=== PATIENT | male | born 1945 | race Asian ===

== ENCOUNTER 2020-05-13 13:15 | Outpatient (REF) | payer MEDICARE, OTHER, SELFPAY ==
[2020-05-13 13:43] LABS: MANUAL DIFF FLAG NO
[2020-05-13 13:48] LABS: Basophils Absolute Auto 0.1 X10*3/uL (0.0-0.2); Basophils Percent Auto 0.8 % (0-2); Eosinophils Absolute Auto 0.1 X10*3/uL (0.0-0.4); Eosinophils Percent Auto 1.5 % (0-4); Hematocrit 45.6 % (42-52); Imm Gran Abs Auto 0.01 X10*3/uL (0.00-0.03); Imm Gran Pct Auto 0.2 % (0.0-0.4); Lymphocytes Absolute Auto 2.7 X10*3/uL (1.2-4.9); Lymphocytes Percent Auto 43.9 % (20-40); Mean Corpuscular HGB Conc 32.9 g/dl (31.0-36.0); Mean Corpuscular Hemoglobin 29.7 pg (27.0-33.0); Mean Corpuscular Volume 90.3 fL (80-98); Mean Platelet Volume 10.1 fL (9.4-12.4); Monocytes Absolute Auto 0.5 X10*3/uL (0.1-1.2); Monocytes Percent Auto 7.6 % (2-11); Neutrophils Absolute Auto 2.8 X10*3/uL (2.0-8.3); Platelet Count 163 X10*3/uL (160-400); Red Blood Count 5.05 X10*6/uL (4.60-5.80); Red Cell Distribution Width 12.5 % (11.0-16.0); White Blood Count 6.1 X10*3/uL (4.8-10.8)
[2020-05-13 14:11] LABS: Estimated Average Glucose 163 mg/dL; Hemoglobin A1c % 7.3 %
[2020-05-13 14:12] LABS: Alanine Aminotransferase 31 U/L (0-40); Albumin Level 4.7 g/dL (3.5-5.0); Alkaline Phosphatase 62 U/L (39-117); Anion Gap 12 (12-20); Aspartate Amino Transferase 23 U/L (5-37); Bilirubin Total 0.5 mg/dL (0.0-1.0); Blood Urea Nitrogen 20 mg/dL (9-16); Calcium 9.5 mg/dL (8.4-10.2); Carbon Dioxide 29 mmol/L (22-29); Chloride 101 mmol/L (96-108); Cholesterol 155 mg/dL; Estimated Glomerular Filt Rate 46; Glucose Random 146 mg/dL (60-115); HDL Cholesterol 36 mg/dL; LDL Cholesterol Calculated 63 mg/dl; Potassium 4.6 mmol/l (3.3-5.1); Sodium 137 mmol/L (135-145); Total Protein 7.7 g/dL (6.5-8.0); Triglycerides 280 mg/dL; Uric Acid 4.7 mg/dL (3.4-7.0)
[2020-05-13 14:34] LABS: T4 Thyroxine 8.5 ug/dL (4.5-12.0); Thyroid Stimulating Hormone 0.87 uIU/mL (0.32-4.0)
== END 2020-05-13 13:16 | disposition home or self-care (01) ==
LOC: HO.LAB 13:15
PROVIDERS: Referring Provider Internal Medicine
DX: E11.9 Type 2 diabetes mellitus without complications (principal); E03.9 Hypothyroidism, unspecified; E78.5 Hyperlipidemia, unspecified
CPT/HCPCS: 36415; 80053; 80061; 83036; 84436; 84443; 84550; 85025

== ENCOUNTER 2020-06-30 09:22 | Outpatient (REF) | payer SELFPAY ==
--- NOTE | 2020-06-30 09:54 | MHC.AU.P13 ---
Hearing Instrument Problem Date of Visit: 06/30/20 Right Ear: Warehouse Receiver: Phonak Model: AVOS SystemsEO [id number] Serial Number: [id number] Repair Warranty: 10/03/2020 Loss and Damage Warranty: 10/03/2020 Battery Size: 312 Color: [employer] Machine Operator: 2xS Type of Dome: MEDIUM OPEN Type of Wax Guard: CERUSTOP Follow-Up Summary: Right aid dropped off - not working. Cleaned and replaced 2xS inspector handbag frames and medium open dome - now amplifying clearly. Recommendations: Recommendations: Hearing instrument follow-up or maintenance as needed. Signature: Provider: CHALO Mooney
== END 2020-06-30 09:23 | disposition home or self-care (01) ==
LOC: HO.HAP 09:22
PROVIDERS: Visit Provider Internal Medicine
DX: Z13.89 Encounter for screening for other disorder (principal)

== ENCOUNTER → 2020-08-02 12:56 | Outpatient (BNVA) | payer MEDICARE, OTHER, SELFPAY | PROVIDERS: PCP Internal Medicine; Visit Provider Internal Medicine Cardiovascular Disease | DX: Z13.89 Encounter for screening for other disorder (principal) | CPT/HCPCS: 99202 ==

== ENCOUNTER → 2020-08-18 08:23 | Outpatient (REF) | payer MEDICARE, OTHER, SELFPAY ==
--- NOTE | 2020-08-18 08:28 | CA_ITS ---
Transthoracic Echocardiogram Patient (Last, First, Middle): Wilder Austinrainaro Herlinda Dolan Gender: Male Date of : 1945 Age: 75 Procedure Date: 08/18/2020 Procedure Type: Transthoracic Echocardiogram Location: OP Height: 170.18 cm Weight: 71.67 kg BSA: 1.83 m2 Heart Rate: bpm BP: 134 / 70 mmHg Behavioral Specialist: [facility] MD: Bret Faust MD Symptoms: I35.0 - Nonrheumatic aortic (valve) stenosis Study Quality: Good ECG Rhythm: Sinus Conclusions: - The left ventricular systolic function is normal. The visually estimated ejection fraction is between 60-65%. - There is mild calcification of the aortic valve. There is no aortic valve stenosis. Findings Left Ventricle Normal left ventricular cavity size. There is mildly increased left ventricular wall thickness. The left ventricular systolic function is normal. The visually estimated ejection fraction is between 60-65%. There is no evidence of regional wall motion abnormalities. Diastolic function is normal for age. Right Ventricle Normal right ventricular cavity size and systolic function. Atria The left atrium is normal in size. The right atrium is normal in size. Aortic Valve There is a normal trileaflet aortic valve. There is mild calcification of the aortic valve. There is no aortic valve stenosis. The peak aortic velocity is 2.02 m/s with a calculated peak gradient of 16 mmHg. The mean gradient is 9 mmHg. The aortic valve area is 2.37 cm2. There is trace (trivial) aortic valve regurgitation. Mitral Valve The mitral valve appears normal. There is trace mitral valve regurgitation. There is no mitral valve stenosis. Pulmonic Valve The pulmonic valve was not well visualized. Tricuspid Valve Normal tricuspid valve structure. There is trace tricuspid valve regurgitation. The pulmonary artery systolic pressure is normal. Great Vessels The aortic annulus, sinuses of valsalva, asc aorta, and aortic arch are normal in size. Venous The inferior vena cava is normal in size and collapses greater than 50% with inspiration. Pericardium/Pleural There is no evidence of pericardial effusion. Prior Study Comparison No prior study available for comparison. Measurements 2D Linear Measurements RVIDd: 3.07 RVIDd Index: 1.68 IVSd: 1.07 0.6-0.9/0.6-1.0 cm LVIDd: 4.80 3.9-5.3/4.2-5.9 cm LVIDd Index: 2.62 2.4-3.2/2.2-3.1 cm/m2 LVIDs: 2.77 2.0-3.6 cm LVPWd: 1.09 0.7-1.1 cm Ao Root: 3.40 2.1-3.5 cm LA Diam: 3.90 2.7-3.8/3.0-4.0 cm LAIDs Index: 2.13 1.5-2.3 cm/m2 LV Mass: 235.62 67-162/88-224 g LV Mass Index: 128.76 43-95/49-115 g/m2 LVOT Diam: 2.20 3.0+(-)1.3 cm 2D Systolic Function EF 4C: 56.20 >55% EF 2C: 67.30 >55% EF BiP: 64.40 >55% Mitral Valve MV Pk E: 0.84 MV PK A: 1.15 MV Decel Time: 185.00 E/A: 0.70 E'Lateral: 11.50 E'Medial: 5.11 E/E' Med: 16.40 E/E' Lat: 7.30 Aortic Valve AoV Pk Xavi: 2.02 AoV Mn Xavi: 1.36 AoV VTI: 0.38 AoV Pk Grad: 16.00 Aov Mn Grad: 9.00 LISANDRO Cont.VTI: 2.37 LVOT LVOT Pk Xavi: 1.40 LVOT Mn Xavi: 0.88 LVOT VTI: 0.24 LVOT Pk Grad: 8.00 LVOT Mn Grad: 4.00 LVOT Diam: 2.20 LVOT Area: 3.80 Diastolic Function MV Pk E: 0.84 MV Pk A: 1.15 E/A: 0.70 E'Medial: 5.11 E/E' Med: 16.40 E' Laterial: 11.50 E/E' Lat: 7.30 Tricuspid Valve TR Pk Xavi: 2.46 TR Pk Grad: 24.00 RA Press: 3.00 RVSP: 27.00 Great Vessels Aorta Ao Root-2D: 3.40 2.0-3.7 cm Ao Asc: 3.70 2.1-3.4 cm Ao Arch: 2.70 Updated in Other Vendor System with Status of Final Ez Gamez MD electronically signed on 08/19/2020 4:05:50 PM with status of Final
== END ==
LOC: HO.CARD 08:23
PROVIDERS: PCP Internal Medicine; Visit Provider Internal Medicine
DX: I35.0 Nonrheumatic aortic (valve) stenosis (principal)
CPT/HCPCS: 93306

== ENCOUNTER 2020-11-12 09:49 | Outpatient (REF) | payer MEDICARE, OTHER, SELFPAY ==
[2020-11-12 11:20] LABS: Glucose Urine UA NEG (NEG); Leukocyte Esterase Urine NEG (NEG); Nitrite Urine NEG (NEG); Urine Blood TRACE (NEG); Urine Ketones NEG (NEG); Urine Protein NEG (NEG-TRACE)
[2020-11-12 11:29] LABS: Appearance Urine CLEAR; Color Urine YELLOW
[2020-11-12 11:41] LABS: Hematocrit 44.6 % (42-52); Hemoglobin 14.6 g/dl (14.0-18.0); Mean Corpuscular HGB Conc 32.7 g/dl (31.0-36.0); Mean Corpuscular Hemoglobin 29.4 pg (27.0-33.0); Mean Corpuscular Volume 89.9 fL (80-98); Mean Platelet Volume 10.7 fL (9.4-12.4); Platelet Count 164 X10*3/uL (160-400); Red Blood Count 4.96 X10*6/uL (4.60-5.80); Red Cell Distribution Width 12.4 % (11.0-16.0); White Blood Count 5.6 X10*3/uL (4.8-10.8)
[2020-11-12 11:50] LABS: Alanine Aminotransferase 26 U/L (0-40); Albumin Level 4.7 g/dL (3.5-5.0); Alkaline Phosphatase 51 U/L (39-117); Anion Gap 13 (12-20); Aspartate Amino Transferase 26 U/L (5-37); Bilirubin Direct 0.3 mg/dL (0.0-0.5); Bilirubin Total 0.6 mg/dL (0.0-1.0); Blood Urea Nitrogen 27 mg/dL (9-16); Calcium 10.1 mg/dL (8.4-10.2); Carbon Dioxide 25 mmol/L (22-29); Chloride 106 mmol/L (96-108); Cholesterol 125 mg/dL; Estimated Glomerular Filt Rate 50; Glucose Random 133 mg/dL (60-115); HDL Cholesterol 37 mg/dL; LDL Cholesterol Calculated 69 mg/dl; Potassium 4.9 mmol/L (3.3-5.1); Sodium 139 mmol/L (135-145); Total Protein 7.7 g/dL (6.5-8.0); Triglycerides 96 mg/dL
[2020-11-12 12:00] LABS: Creatinine Urine 149.89 mg/dL; Microalbum/Creatinine Ratio Ur 40.6 ug/mg cr
[2020-11-12 12:01] LABS: RBC Urine 0-2 /HPF (0); Squamous Epithelial Cell Urine TRACE /LPF; WBC Urine 0 /HPF (0-4)
[2020-11-12 12:14] LABS: Prostate Specific Antigen Scr 2.14 ng/mL (<0.05-4.0); Thyroid Stimulating Hormone 0.82 uIU/mL (0.32-4.0)
[2020-11-12 12:19] LABS: Folate 12.2 ng/mL (> or = 4.0); Vitamin B12 369 pg/mL (200-900)
[2020-11-17 18:12] LABS: Vitamin D 25-OH, D2 <4 ng/mL; Vitamin D 25-OH, D3 35 ng/mL; Vitamin D 25-OH, Total 35 ng/mL (30-100)
== END 2020-11-12 09:50 | disposition home or self-care (01) ==
LOC: HO.HMGCLDS 09:49
PROVIDERS: PCP Internal Medicine; Visit Provider Internal Medicine
DX: Z12.5 Encounter for screening for malignant neoplasm of prostate (principal); E11.9 Type 2 diabetes mellitus without complications; E79.0 Hyperuricemia without signs of inflammatory arthritis and tophaceous disease; I10 Essential (primary) hypertension
CPT/HCPCS: 36415; 80048; 80061; 80076; 81001; 82043; 82306; 82607; 82746; 84153; 84443; 85027

== ENCOUNTER 2021-05-23 13:47 | Outpatient (REF) | payer MEDICARE, OTHER, SELFPAY ==
[2021-05-23 17:13] LABS: Appearance Urine CLEAR; Color Urine YELLOW; Glucose Urine UA NEG (NEG); Leukocyte Esterase Urine NEG (NEG); Nitrite Urine NEG (NEG); Urine Blood NEG (NEG); Urine Ketones NEG (NEG); Urine Protein NEG (NEG-TRACE)
[2021-05-23 17:15] LABS: Hematocrit 46.8 % (42.0-52.0); Hemoglobin 15.2 g/dl (14.0-18.0); Mean Corpuscular HGB Conc 32.5 g/dl (31.0-36.0); Mean Corpuscular Hemoglobin 28.8 pg (27.0-33.0); Mean Corpuscular Volume 88.8 fL (80.0-98.0); Mean Platelet Volume 10.3 fL (9.4-12.4); Platelet Count 170 X10*3/uL (160-400); Red Blood Count 5.27 X10*6/uL (4.60-5.80); Red Cell Distribution Width 12.7 % (11.0-16.0)
[2021-05-23 17:44] LABS: Alanine Aminotransferase 26 U/L (0-40); Albumin Level 4.7 g/dL (3.5-5.0); Alkaline Phosphatase 57 U/L (39-117); Anion Gap 12 (12-20); Aspartate Amino Transferase 25 U/L (5-37); Bilirubin Direct 0.2 mg/dL (0.0-0.5); Bilirubin Total 0.6 mg/dL (0.0-1.0); Blood Urea Nitrogen 24 mg/dL (9-16); C Reactive Protein 0.09 mg/dL (< or = 0.50); Calcium 10.5 mg/dL (8.4-10.2); Carbon Dioxide 28 mmol/L (22-29); Chloride 103 mmol/L (96-108); Cholesterol 147 mg/dL; Estimated Glomerular Filt Rate 44; Glucose Random 94 mg/dL (60-115); HDL Cholesterol 38 mg/dL; LDL Cholesterol Calculated 86 mg/dl; Potassium 5.2 mmol/L (3.3-5.1); Sodium 138 mmol/L (135-145); Total Protein 8.2 g/dL (6.5-8.0); Triglycerides 117 mg/dL; Uric Acid 5.7 mg/dL (3.4-7.0)
[2021-05-23 17:59] LABS: Thyroid Stimulating Hormone 2.18 uIU/mL (0.32-4.0)
[2021-05-24 04:00] LABS: Estimated Average Glucose 154 mg/dL
== END 2021-05-23 13:48 | disposition home or self-care (01) ==
LOC: HO.LAB 13:47
PROVIDERS: PCP Internal Medicine; Visit Provider Internal Medicine
DX: E78.00 Pure hypercholesterolemia, unspecified (principal); E11.9 Type 2 diabetes mellitus without complications; E79.0 Hyperuricemia without signs of inflammatory arthritis and tophaceous disease; I10 Essential (primary) hypertension
CPT/HCPCS: 36415; 80048; 80061; 80076; 81003; 83036; 84443; 84550; 85027; 86140

== ENCOUNTER 2021-06-15 07:53 | Outpatient (REF) | payer SELFPAY | END 2021-06-15 07:54 | disposition home or self-care (01) | LOC: HO.HAP 07:53 | PROVIDERS: Visit Provider Internal Medicine | DX: Z13.89 Encounter for screening for other disorder (principal) ==

== ENCOUNTER 2021-07-20 11:44 | Outpatient (REF) | payer MEDICARE, OTHER, SELFPAY ==
[2021-07-20 13:14] LABS: Hematocrit 43.8 % (42.0-52.0); Hemoglobin 14.4 g/dl (14.0-18.0); Mean Corpuscular HGB Conc 32.9 g/dl (31.0-36.0); Mean Corpuscular Hemoglobin 29.8 pg (27.0-33.0); Mean Corpuscular Volume 90.5 fL (80.0-98.0); Mean Platelet Volume 11.3 fL (9.4-12.4); Platelet Count 156 X10*3/uL (160-400); Red Blood Count 4.84 X10*6/uL (4.60-5.80); Red Cell Distribution Width 12.7 % (11.0-16.0); White Blood Count 6.6 X10*3/uL (4.8-10.8)
[2021-07-20 13:52] LABS: Anion Gap 12 (12-20); Blood Urea Nitrogen 19 mg/dL (9-16); Calcium 10.4 mg/dL (8.4-10.2); Carbon Dioxide 29 mmol/L (22-29); Chloride 101 mmol/L (96-108); Estimated Glomerular Filt Rate 49; Glucose Random 166 mg/dL (60-115); Potassium 5.1 mmol/L (3.3-5.1); Sodium 137 mmol/L (135-145)
[2021-07-20 14:17] LABS: Estimated Average Glucose 160 mg/dL; Hemoglobin A1c % 7.2 %
== END 2021-07-20 11:45 | disposition home or self-care (01) ==
LOC: HO.LAB 11:44
PROVIDERS: PCP Internal Medicine; Visit Provider Internal Medicine
DX: R89.9 Unspecified abnormal finding in specimens from other organs, systems and tissues (principal)
CPT/HCPCS: 36415; 80048; 83036; 85027

== ENCOUNTER → 2021-08-03 12:42 | Outpatient (BNVA) | payer MEDICARE, OTHER, SELFPAY | PROVIDERS: PCP Internal Medicine; Referring Provider Internal Medicine; Visit Provider Internal Medicine Cardiovascular Disease | DX: I25.10 Atherosclerotic heart disease of native coronary artery without angina pectoris (principal) | CPT/HCPCS: 93005; 99212 ==

== ENCOUNTER 2021-11-19 08:20 | Outpatient (REF) | payer MEDICARE, OTHER, SELFPAY ==
[2021-11-19 10:34] LABS: Hematocrit 43.2 % (42.0-52.0); Hemoglobin 14.1 g/dl (14.0-18.0); Mean Corpuscular HGB Conc 32.6 g/dl (31.0-36.0); Mean Corpuscular Hemoglobin 28.7 pg (27.0-33.0); Mean Platelet Volume 10.7 fL (9.4-12.4); Platelet Count 165 X10*3/uL (160-400); Red Blood Count 4.91 X10*6/uL (4.60-5.80); Red Cell Distribution Width 12.7 % (11.0-16.0); White Blood Count 6.1 X10*3/uL (4.8-10.8)
[2021-11-19 10:41] LABS: Estimated Average Glucose 166 mg/dL; Hemoglobin A1c % 7.4 %
[2021-11-19 11:00] LABS: Anion Gap 10 (12-20); Blood Urea Nitrogen 23 mg/dL (9-16); Calcium 9.1 mg/dL (8.4-10.2); Carbon Dioxide 26 mmol/L (22-29); Chloride 106 mmol/L (96-108); Cholesterol 129 mg/dL; Estimated Glomerular Filt Rate 46; Glucose Random 145 mg/dL (60-115); HDL Cholesterol 32 mg/dL; LDL Cholesterol Calculated 68 mg/dl; Potassium 5.1 mmol/L (3.3-5.1); Sodium 137 mmol/L (135-145); Triglycerides 145 mg/dL
[2021-11-19 11:11] LABS: Erythrocyte Sedimentation Rate 4 MM/HR (0-15); Thyroid Stimulating Hormone 1.47 uIU/mL (0.32-4.0)
== END 2021-11-19 08:21 | disposition home or self-care (01) ==
LOC: HO.LAB 08:20
PROVIDERS: PCP Internal Medicine; Visit Provider Internal Medicine
DX: I25.10 Atherosclerotic heart disease of native coronary artery without angina pectoris (principal); E78.00 Pure hypercholesterolemia, unspecified; E11.9 Type 2 diabetes mellitus without complications
CPT/HCPCS: 36415; 80048; 80061; 83036; 84443; 85027; 85652

== ENCOUNTER 2021-12-26 09:22 | Outpatient (REF) | payer SELFPAY ==
--- NOTE | 2021-12-26 11:38 | MHC.AU.HFU ---
Hearing Instrument Follow-Up- Binaural Date of Visit: 12/26/21 Left Ear: Cfd Engineer: Phonak Model: [employer] [id number] Serial Number: [id number] Repair Warranty: Battery Size: 312 Cardiac Rehab Nurse: 1xS Type of Dome: MEDIUM OPEN Follow-Up Summary: Patient dropped off his left hearing aid for repair, reporting the cyanide case hardener wire was broken. We did not have a size 1xS left cyanide case hardener in stock. Contacted patient to discuss- quoted $150 for new cyanide case hardener. Patient would like to go ahead and order the replacement cyanide case hardener. The hearing aid was cleaned and will be kept in the Repair drawer until the cyanide case hardener has arrived. Recommendations: Patient will be contacted when materials have arrived. 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
== END 2021-12-26 09:23 | disposition home or self-care (01) ==
LOC: HO.HAP 09:22
PROVIDERS: Visit Provider Internal Medicine
DX: Z13.89 Encounter for screening for other disorder (principal)

== ENCOUNTER 2021-12-30 10:27 | Outpatient (REF) | payer SELFPAY | END 2021-12-30 10:28 | disposition home or self-care (01) | LOC: HO.HAP 10:27 | PROVIDERS: Visit Provider Internal Medicine | DX: Z46.1 Encounter for fitting and adjustment of hearing aid (principal) | CPT/HCPCS: V5014 ==

== ENCOUNTER 2022-05-27 08:50 | Outpatient (REF) | payer MEDICARE, OTHER, SELFPAY ==
[2022-05-27 10:11] LABS: Hematocrit 45.5 % (42.0-52.0); Hemoglobin 14.7 g/dl (14.0-18.0); Mean Corpuscular HGB Conc 32.3 g/dl (31.0-36.0); Mean Corpuscular Hemoglobin 28.2 pg (27.0-33.0); Mean Corpuscular Volume 87.3 fL (80.0-98.0); Mean Platelet Volume 10.2 fL (9.4-12.4); Platelet Count 153 X10*3/uL (160-400); Red Blood Count 5.21 X10*6/uL (4.60-5.80); Red Cell Distribution Width 12.3 % (11.0-16.0); White Blood Count 6.3 X10*3/uL (4.8-10.8)
[2022-05-27 10:26] LABS: Estimated Average Glucose 154 mg/dL
[2022-05-27 10:41] LABS: Alanine Aminotransferase 25 U/L (0-40); Albumin Level 4.4 g/dL (3.5-5.0); Alkaline Phosphatase 60 U/L (39-117); Anion Gap 15 (12-20); Aspartate Amino Transferase 25 U/L (5-37); Bilirubin Direct 0.2 mg/dL (0.0-0.5); Bilirubin Total 0.5 mg/dL (0.0-1.0); Blood Urea Nitrogen 17 mg/dL (9-16); Calcium 9.6 mg/dL (8.4-10.2); Carbon Dioxide 23 mmol/L (22-29); Chloride 106 mmol/L (96-108); Cholesterol 109 mg/dL; Estimated Glomerular Filt Rate 50; Glucose Random 132 mg/dL (60-115); HDL Cholesterol 30 mg/dL; LDL Cholesterol Calculated 55 mg/dl; Sodium 139 mmol/L (135-145); Total Protein 7.2 g/dL (6.5-8.0); Triglycerides 124 mg/dL; Uric Acid 5.8 mg/dL (3.4-7.0)
[2022-05-27 11:04] LABS: Erythrocyte Sedimentation Rate 2 MM/HR (0-15)
== END 2022-05-27 08:51 | disposition home or self-care (01) ==
LOC: HO.LAB 08:50
PROVIDERS: PCP Internal Medicine; Visit Provider Internal Medicine
DX: E78.00 Pure hypercholesterolemia, unspecified (principal); I25.10 Atherosclerotic heart disease of native coronary artery without angina pectoris
CPT/HCPCS: 36415; 80048; 80061; 80076; 82550; 83036; 84443; 84550; 85027; 85652

== ENCOUNTER → 2022-10-06 09:04 | Outpatient (BNVA) | payer MEDICARE, OTHER, SELFPAY | PROVIDERS: PCP Internal Medicine; Visit Provider Internal Medicine Cardiovascular Disease | DX: I35.0 Nonrheumatic aortic (valve) stenosis (principal); I25.10 Atherosclerotic heart disease of native coronary artery without angina pectoris; E78.00 Pure hypercholesterolemia, unspecified | CPT/HCPCS: 93005 ==

== ENCOUNTER → 2022-10-24 15:43 | Outpatient (REF) | payer MEDICARE, OTHER, SELFPAY ==
--- NOTE | 2022-10-24 15:55 | CA_ITS ---
Transthoracic Echocardiogram Patient (Last, First, Middle): Wilder Austinrainaro Herlinda Dolan Gender: Male Date of : 1945 Age: 77 Procedure Date: 10/24/2022 Procedure Type: Transthoracic Echocardiogram Location: OP Height: 170.18 cm Weight: 68.95 kg BSA: 1.80 m2 Heart Rate: bpm BP: 122 / 60 mmHg Radiagraph Operator: Referring MD: Shahid Alvarenga MD Contract Technician: Shahid Alvarenga MD Symptoms: I35.0 - Nonrheumatic aortic (valve) stenosis Study Quality: Good ECG Rhythm: Sinus Conclusions: - Normal left ventricular size and systolic function. There is mildly increased left ventricular wall thickness. The visually estimated ejection fraction is between 60-65%. - E/E prime ratio is between 8 and 15 consistent with indeterminate filling pressures. - The basal inferior segment is akinetic. - Normal right ventricular cavity size and systolic function. - The left atrium is mildly dilated. - There is mild aortic valve stenosis. - There is trace mitral valve regurgitation. - There is mild dilatation of the ascending aorta measuring 3.80 cm. Findings Left Ventricle Normal left ventricular size and systolic function. There is mildly increased left ventricular wall thickness. The visually estimated ejection fraction is between 60-65%. There is evidence of regional wall motion abnormalities. Diastolic function is indeterminate on the basis of available data. E/E prime ratio is between 8 and 15 consistent with indeterminate filling pressures. Wall Motion Rest Echo Findings The basal inferior segment is akinetic. Right Ventricle Normal right ventricular cavity size and systolic function. Atria The left atrium is mildly dilated. Aortic Valve There is a normal trileaflet aortic valve. There is mild calcification of the aortic valve. There is mild aortic valve stenosis. The peak aortic velocity is 2.06 m/s. The mean gradient is 9 mmHg. There is trace (trivial) aortic valve regurgitation. Mitral Valve The mitral valve appears normal. There is trace mitral valve regurgitation. There is no mitral valve stenosis. Pulmonic Valve Normal pulmonic valve structure and function. Tricuspid Valve Normal tricuspid valve structure and function. There is mild tricuspid valve regurgitation. Normal right atrial pressure. There is no evidence of pulmonary hypertension. Great Vessels There is mild dilatation of the ascending aorta measuring 3.80 cm. The visualized portions of the pulmonary artery and branches are normal. Venous The inferior vena cava is normal in size and collapses greater than 50% with inspiration. Pericardium/Pleural There is no evidence of pericardial effusion. Prior Study Comparison Changes noted compared to prior study dated: 08/18/2020. Basal inferior segment is akinetic, mild . Mild dilation of ascending aorta. Measurements 2D Linear Measurements IVSd: 1.11 0.6-0.9/0.6-1.0 cm LVIDd: 4.54 3.9-5.3/4.2-5.9 cm LVIDd Index: 2.52 2.4-3.2/2.2-3.1 cm/m2 LVIDs: 2.85 2.0-3.6 cm LVPWd: 1.11 0.7-1.1 cm Ao Root: 3.30 2.1-3.5 cm LA Diam: 4.30 2.7-3.8/3.0-4.0 cm LAIDs Index: 2.39 1.5-2.3 cm/m2 LV Mass: 223.95 67-162/88-224 g LV Mass Index: 124.42 43-95/49-115 g/m2 LVOT Diam: 2.00 3.0+(-)1.3 cm Mitral Valve MV Pk E: 0.86 MV PK A: 0.92 MV Decel Time: 225.00 E/A: 0.90 E'Lateral: 9.68 E'Medial: 4.46 E/E' Med: 19.20 E/E' Lat: 8.90 PHT: 66.00 MVA PHT: 3.33 Decel [place]: 3.81 Aortic Valve AoV Pk Xavi: 2.06 AoV Mn Xavi: 1.36 AoV VTI: 0.50 AoV Pk Grad: 17.00 Aov Mn Grad: 9.00 LISANDRO Cont.VTI: 1.25 LVOT LVOT Pk Xavi: 0.85 LVOT Mn Xavi: 0.51 LVOT VTI: 0.20 LVOT Pk Grad: 3.00 LVOT Mn Grad: 1.00 LVOT Diam: 2.00 LVOT Area: 3.14 Diastolic Function MV Pk E: 0.86 MV Pk A: 0.92 E/A: 0.90 E'Medial: 4.46 E/E' Med: 19.20 E' Laterial: 9.68 E/E' Lat: 8.90 Right Ventricle TAPSE (mm): 22.00 Tricuspid Valve TR Pk Xavi: 2.43 TR Pk Grad: 24.00 RA Press: 3.00 RVSP: 27.00 Great Vessels Aorta Ao Root-2D: 3.30 2.0-3.7 cm Ao Asc: 3.80 2.1-3.4 cm Pulmonary Valve PV Pk Xavi: 1.12 Peak PV Grad: 5.00 Updated in Other Vendor System with Status of Final Shahid Alvarenga MD electronically signed on 10/25/2022 7:34:41 PM with status of Final
== END ==
LOC: HO.CARD 15:43
PROVIDERS: Visit Provider Internal Medicine Cardiovascular Disease
DX: I35.0 Nonrheumatic aortic (valve) stenosis (principal)
CPT/HCPCS: 93306

== ENCOUNTER 2022-12-02 08:50 | Outpatient (REF) | payer MEDICARE, OTHER, SELFPAY ==
[2022-12-02 09:40] LABS: Estimated Average Glucose 143 mg/dL; Hemoglobin A1c % 6.6 %
[2022-12-02 09:47] LABS: Hematocrit 43.1 % (42.0-52.0); Hemoglobin 13.8 g/dl (14.0-18.0); Mean Corpuscular Hemoglobin 28.6 pg (27.0-33.0); Mean Corpuscular Volume 89.2 fL (80.0-98.0); Mean Platelet Volume 10.5 fL (9.4-12.4); Platelet Count 165 X10*3/uL (160-400); Red Blood Count 4.83 X10*6/uL (4.60-5.80); Red Cell Distribution Width 12.4 % (11.0-16.0); White Blood Count 6.6 X10*3/uL (4.8-10.8)
[2022-12-02 10:33] LABS: Alanine Aminotransferase 22 U/L (0-40); Albumin Level 4.2 g/dL (3.5-5.0); Alkaline Phosphatase 53 U/L (39-117); Anion Gap 15 (12-20); Aspartate Amino Transferase 21 U/L (5-37); Bilirubin Direct 0.2 mg/dL (0.0-0.5); Bilirubin Total 0.5 mg/dL (0.0-1.0); Blood Urea Nitrogen 25 mg/dL (9-16); Calcium 9.7 mg/dL (8.4-10.2); Carbon Dioxide 19 mmol/L (22-29); Chloride 108 mmol/L (96-108); Cholesterol 109 mg/dL; Estimated Glomerular Filt Rate 55; Glucose Random 129 mg/dL (60-115); HDL Cholesterol 34 mg/dL; LDL Cholesterol Calculated 60 mg/dl; Potassium 5.1 mmol/L (3.3-5.1); Sodium 137 mmol/L (135-145); Total Protein 7.3 g/dL (6.5-8.0); Triglycerides 79 mg/dL
[2022-12-02 10:48] LABS: Thyroid Stimulating Hormone 0.93 uIU/mL (0.32-4.0)
== END 2022-12-02 08:51 | disposition home or self-care (01) ==
LOC: HO.LAB 08:50
PROVIDERS: PCP Internal Medicine; Visit Provider Internal Medicine
DX: E78.00 Pure hypercholesterolemia, unspecified (principal); I10 Essential (primary) hypertension; E11.9 Type 2 diabetes mellitus without complications
CPT/HCPCS: 36415; 80048; 80061; 80076; 83036; 84443; 85027

== ENCOUNTER → 2023-01-26 08:37 | Outpatient (REF) | payer MEDICARE, OTHER, SELFPAY ==
--- NOTE | 2023-01-26 08:42 | CA_ITS ---
Acquisition Time: 2023-01-26 08:42:53 Total Exercise Time: 00:07:56 Test Indications: Dyspnea CAD Medications: ALLOPURINOL AMLODIPINE LEVOTHYROXINE LOSARTAN METFORMIN GLIPIZIDE ROSUVASTATIN Protocol: KARLI Max HR: 130 BPM 91% of Pred: 142 BPM Max BP: 168/050 mmHG Max Work Load: 9.9 METS Exercise stress test exercise 7 min 56 sec of Karli protocol achieving 91% MPHR with mild SOB,no chest discomfort, with isolated PVCs, with normotensive response to exercise, without EKG changes. Test reviewed with Dr. Alvarenga. Referred By: Shahid Alvarenga Overread By: Shahid Alvarenga
== END ==
LOC: HO.CARD 08:37
PROVIDERS: PCP Internal Medicine; Visit Provider Internal Medicine Cardiovascular Disease
DX: I25.10 Atherosclerotic heart disease of native coronary artery without angina pectoris (principal)
CPT/HCPCS: 93017

== ENCOUNTER → 2023-01-26 08:42 | Outpatient (BNV) | payer MEDICARE, OTHER, SELFPAY | PROVIDERS: PCP Internal Medicine; Visit Provider Internal Medicine Cardiovascular Disease | DX: I25.10 Atherosclerotic heart disease of native coronary artery without angina pectoris (principal); R06.02 Shortness of breath | CPT/HCPCS: 93016; 93018 ==

== ENCOUNTER 2023-06-09 08:16 | Outpatient (REF) | payer MEDICARE, OTHER, SELFPAY ==
[2023-06-09 09:16] LABS: Hematocrit 43.1 % (42.0-52.0); Hemoglobin 14.3 g/dl (14.0-18.0); Mean Corpuscular HGB Conc 33.2 g/dl (31.0-36.0); Mean Corpuscular Hemoglobin 29.1 pg (27.0-33.0); Mean Corpuscular Volume 87.8 fL (80.0-98.0); Platelet Count 149 X10*3/uL (160-400); Red Blood Count 4.91 X10*6/uL (4.60-5.80); Red Cell Distribution Width 13.1 % (11.0-16.0); White Blood Count 5.3 X10*3/uL (4.8-10.8)
[2023-06-09 09:27] LABS: Estimated Average Glucose 166 mg/dL; Hemoglobin A1c % 7.4 % (<6.0)
[2023-06-09 10:23] LABS: Prostate Specific Antigen Scr 2.18 ng/mL (<0.05-4.0)
[2023-06-09 10:33] LABS: Alanine Aminotransferase 21 U/L (0-40); Albumin Level 4.3 g/dL (3.5-5.0); Alkaline Phosphatase 58 U/L (39-117); Anion Gap 11 (12-20); Aspartate Amino Transferase 19 U/L (5-37); Bilirubin Direct 0.2 mg/dL (0.0-0.5); Bilirubin Total 0.4 mg/dL (0.0-1.0); Blood Urea Nitrogen 20 mg/dL (9-16); Calcium 9.5 mg/dL (8.4-10.2); Carbon Dioxide 26 mmol/L (22-29); Chloride 106 mmol/L (96-108); Cholesterol 124 mg/dL (<200); Estimated Glomerular Filt Rate 43; Glucose Random 149 mg/dL (60-115); HDL Cholesterol 37 mg/dL (>40); LDL Cholesterol Calculated 68 mg/dL (<100); Sodium 138 mmol/L (135-145); Thyroid Stimulating Hormone 1.54 uIU/mL (0.32-4.0); Total Protein 7.2 g/dL (6.5-8.0); Triglycerides 97 mg/dL (<150); Uric Acid 5.8 mg/dL (3.4-7.0)
== END 2023-06-09 08:17 | disposition home or self-care (01) ==
LOC: HO.LAB 08:16
PROVIDERS: PCP Internal Medicine; Visit Provider Internal Medicine
DX: E11.9 Type 2 diabetes mellitus without complications (principal); I10 Essential (primary) hypertension; Z12.5 Encounter for screening for malignant neoplasm of prostate
CPT/HCPCS: 36415; 80048; 80061; 80076; 83036; 84153; 84443; 84550; 85027

== ENCOUNTER 2023-07-10 07:58 | Outpatient (REF) | payer OTHER, SELFPAY ==
--- NOTE | 2023-07-10 09:05 | MHC.AU.HA3 ---
Hearing Instrument Follow-Up- Binaural Date of Visit: 07/10/23 Right Ear: John, Model, Color, Serial Number:Caitlyn Leiva [id number] Storage Battery Charger Repair Warranty: Storage Battery Charger Loss and Damage Warranty: [facility] Service Plan: [facility] [place] Battery Size: 312 Tour Actor/Slim Tube: 2xS Earmold/Dome/CShell/SlimTip: Type of Wax Guard: CERUSTOP Dispensed By: [facility] Date of Fittin07/18/2017 Left Ear: John, Model, Color, Serial Number: Caitlyn Leiva [id number] Storage Battery Charger Repair Warranty: Storage Battery Charger Loss and Damage Warranty: [facility] Service Plan: [facility] [place] Battery Size: 312 Tour Actor/Slim Tube: 1xS Earmold/Dome/CShell/SlimTip: Type of Wax Guard: CeruStop Dispensed By: [facility] Date of Fittin08/19/2014 Follow-Up Summary: Here for evaluation. Reported not hearing very well even with hearing aids in. Found both wax guards clogged. Mics blocked on left aid, not amplifying. Cleaned, changed domes and wax guards. Listening check positive after cleaning. Briefly discussed new amplification, benefits of binaural technology (currently not wearing a matched pair of aids). Looked at prices, suggested at least active level as he moves through environments with varying levels of background noise and has particular difficulty in group settings. Dr. Austin will see how his current aids are working for him now that both are functioning properly and return for hearing aid consultation if he decides to proceed with new technology. Recommendations: Recommendations: Hearing instrument follow-up or maintenance as needed. Diagnosis Code(s): Primary Diagnosis: H90.3 Bilateral Sensorineural Hearing Loss Signature: Provider: Tre Davidson, [facility]
== END 2023-07-10 07:59 | disposition home or self-care (01) ==
LOC: HO.SH 07:58
PROVIDERS: Visit Provider Internal Medicine
DX: Z01.118 Encounter for examination of ears and hearing with other abnormal findings (principal); H90.3 Sensorineural hearing loss, bilateral
CPT/HCPCS: 92557

== ENCOUNTER 2023-10-10 11:22 | Outpatient (AMB) | payer OTHER, MEDICARE, SELFPAY ==
--- NOTE | 2023-10-10 11:35 | MHC.OFFVIS ---
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 He has background history of hypertension, hyperlipidemia, type 2 diabetes, hyperuricemia and coronary artery disease for which he underwent coronary artery bypass grafting in 2001. He said he presented to [facility] at that time with chest pressure and tightness. This initially happened with exertion but the day he presented he was sleeping and woke up with chest tightness. He was taken for cardiac catheterization by Dr. Aponte which showed severe left main stenosis and he underwent bypass surgery with QUIÑONES to LAD, left radial graft to OM saphenous vein graft to diagonal 1 and vein graft to the RCA. He is denying any chest discomfort on follow-up but he has some dyspnea with activity. He feels that this is related to just slowing down to some extent. His blood pressure control is good. His last lipid panel showed triglycerides 124, cholesterol 109, LDL 55, HDL 30. Taking medications regularly. He is taking aspirin 3 times a week. 10/10/2023: He returns for follow-up. No chest discomfort or shortness of of breath on follow-up. He has been active as before and has been walking 2 miles per day. Taking medications regularly. He is using aspirin up to 3 times a week. [facility] Medical History Diabetes mellitus Essential (primary) hypertension Hypercholesterolemia Hyperuricemia Surgical History History of right nephrectomy History of tonsillectomy Hx of CABG Family History Father No problems noted. Mother No problems noted. Social History Housing: House Alcohol intake: never Patient Tobacco Use Status: Never used Tobacco e-Cigarette/Vaping Use: Never Used Second Hand Smoke Exposure: No Current occupational status: employed Cognitive needs: No Hearing needs: Yes Vision needs: Yes Review of Systems Const Denies weakness ENT Denies dizziness Card Denies chest pain, Denies chest pain with activity, Denies syncope, Denies rapid heart rate, Denies pedal edema, Denies edema, Denies leg edema, Denies lightheadedness, Denies palpitations, Denies dyspnea, Denies dyspnea on exertion and Denies orthopnea Resp Denies cough, Denies dyspnea and Denies dyspnea on exertion GI Denies hematochezia and Denies change in stool character Musc Denies abnormal gait, Denies muscle cramps, Denies muscle weakness, Denies numbness, Denies radiating pain into limb and Denies tingling Neuro Denies abnormal gait, Denies dizziness, Denies syncope, Denies numbness, Denies tingling and Denies weakness Endo Denies palpitations Physical Exam Vital Signs: Last Vital Signs Pulse 54 10/10/23 11:36 BP 122/60 10/10/23 11:36 BMI result Body Mass Index 24.9 GENERAL APPEARANCE: in no acute distress, well developed, well nourished. NECK/THYROID: murmur radiating to the carotids, no jugular venous distention. SKIN: Midline sternotomy scar, left radial harvest scar.. HEART: Ejection systolic murmur in the aortic area with preserved 2nd heart sound., regular rate and rhythm. LUNGS: clear to auscultation bilaterally. ABDOMEN: normal, bowel sounds present, soft, nontender, nondistended. EXTREMITIES: no clubbing, cyanosis, or edema. PERIPHERAL PULSES: equal. NEUROLOGIC: nonfocal, alert and oriented. PSYCH: mood/affect full range. Office Procedures EKG Details: Sinus bradycardia, 54/min, rightward axis, QTc 390 msec. [id number], Complete Assessment & Plan Assessment & Plan (1) Aortic stenosis: Comment: He has murmur by exam. Code(s): I35.0 - Nonrheumatic aortic (valve) stenosis Category: Medical Qualifiers: Cardiac valve disease etiology: nonrheumatic Qualified Code(s): I35.0 - Nonrheumatic aortic (valve) stenosis (2) Hypercholesterolemia: Code(s): E78.00 - Pure hypercholesterolemia, unspecified Category: Medical (3) Coronary artery disease: Comment: Status post quadruple bypass in 2001. Clinically stable. Code(s): I25.10 - Atherosclerotic heart disease of [place] coronary artery without angina pectoris Category: Medical Qualifiers: Coronary Disease-Associated Artery/Lesion type: [place] artery [place] vs. transplanted heart: [place] heart Associated angina: without angina Qualified Code(s): I25.10 - Atherosclerotic heart disease of [place] coronary artery without angina pectoris Plan 78-year-old gentleman who is here for follow-up. He has background history of coronary artery bypass surgery. Previously his LV function was preserved when he had mild aortic valve stenosis. Clinically he is fairly stable. He has no anginal symptoms. Blood pressure control is good. His lipid panel is excellent. Same medications f/u in 1 year. Thank you for allowing me to participate in the care of your patient. Please feel free to contact me if you have any questions. Coding Level of Care Code Procedure Only Diagnoses Nonrheumatic aortic valve stenosis I35.0 Cardiac valve disease etiology: nonrheumatic Hypercholesterolemia E78.00 Coronary artery disease involving [place] coronary artery of [place] heart without angina pectoris I25.10 Coronary Disease-Associated Artery/Lesion type: [place] artery [place] vs. transplanted heart: [place] heart Associated angina: without angina CPT Codes EKG - CPT: 52582-[id number], Complete ([id number])
[2023-10-10 11:36] VITALS: BP 122/60; PULSE 54; BMI 24.9
== END 2023-10-10 12:18 | disposition home or self-care (01) ==
PROVIDERS: PCP Internal Medicine; Visit Provider Internal Medicine Cardiovascular Disease
DX: I35.0 Nonrheumatic aortic (valve) stenosis (principal); E78.00 Pure hypercholesterolemia, unspecified; I25.10 Atherosclerotic heart disease of native coronary artery without angina pectoris
CPT/HCPCS: 93010; 99213

== ENCOUNTER → 2023-10-10 11:22 | Outpatient (BNVA) | payer OTHER, MEDICARE, SELFPAY | PROVIDERS: PCP Internal Medicine; Visit Provider Internal Medicine Cardiovascular Disease | DX: I35.0 Nonrheumatic aortic (valve) stenosis (principal); E78.00 Pure hypercholesterolemia, unspecified; I25.10 Atherosclerotic heart disease of native coronary artery without angina pectoris | CPT/HCPCS: 93005; 99212 ==

== ENCOUNTER 2023-10-18 07:58 | Outpatient (AMB) | payer OTHER, MEDICARE, SELFPAY ==
[2023-10-18 08:10] VITALS: BP 136/72; PULSE 56; BMI 25.0
--- NOTE | 2023-10-18 08:10 | A.OFFPC_ITS ---
Vital Signs 10/18/23 08:10 Height 5 ft 7 in Weight 159 lb 6 oz BMI 25.0 BP 136/72 Blood Pressure Location Lt brachial Position Sitting Pulse 56 Pulse Source Pulse Oximeter Intake Visit Reasons: AWV Aircraft Instrument Tester Required: No Accompanied by: Self / Same As Patient Allergies lisinopril Adverse Reaction (Mild, Verified 10/18/23 08:11) Cough Tobacco use date assessed: 10/18/23 Fall risk assessment: No Falls in past year Last assessed Fall Risk: 10/18/23 Dental Screening Dental Screen Date: 10/18/23 Did you have a dental visit in the last 12 months?: Yes Did you have a dental problem in the last 6 months where you did not have access to dental care?: No Was dental information given to patient?: Patient has dentist HPI AWV HPI Details 78-year-old male presents to the office for an annual wellness visit. In addition patient wishes to discuss his diabetes. His A1c is 7.4. 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 He would prefer to continue using glipizide and the medications at the same dosage. Continues to exercise and follows a reasonable diet. Able to do all activities of daily living. Does not check his sugars frequently. Patient is able to drive at night, and take care of his finances. He is independent. [facility] Medical History Diabetes mellitus Essential (primary) hypertension Hypercholesterolemia Hyperuricemia Surgical History History of right nephrectomy History of tonsillectomy Hx of CABG Family History Father No problems noted. Mother No problems noted. Social History Housing: House Alcohol intake: never Patient Tobacco Use Status: Never used Tobacco e-Cigarette/Vaping Use: Never Used Second Hand Smoke Exposure: No Current occupational status: employed Cognitive needs: No Hearing needs: Yes Vision needs: Yes Questionnaire PHQ-9 Over the last 2 weeks, how often have you been bothered by any of the following problems? 1. Little interest or pleasure in doing things: not at all 2. Feeling down, depressed, or hopeless: not at all 3. Trouble falling or staying asleep, or sleeping too much: not at all 4. Feeling tired or having little energy: not at all 5. Poor appetite or overeating: not at all 6. Feeling bad about yourself - or that you are a failure or have let yourself or your family down: not at all 7. Trouble concentrating on things, such as reading the newspaper or watching television: not at all 8. Moving or speaking so slowly that other people could have noticed. Or the opposite - being so fidgety or restless that you have been moving around a lot more than usual: not at all 9. Thoughts that you would be better off or of hurting yourself in some way: not at all Total score: 0 Depression Screening Interpretation: Negative Depression Screening Done: Yes Source: Developed by Drs. Mauricio Varela, Barby Tadeo, Mike Conner and colleagues, with an educational phil from [employer]. Thrive Questionnaire Date Thrive assessed: 10/18/23 I am a: Patient What is your living situation today?: I have a steady place to live Within the past 12 months, did the food you bought not last and you didn't have the money to get more?: Never true Within the past 12 months, did you worry whether your food would run out before you got money to buy more?: Never true Do you have trouble paying for medicines?: No Do you have trouble getting transportation to medical appointments?: No Do you have trouble paying your heating and electricity bill?: No Do you have trouble taking care of your child, family member or friend?: No Do you have trouble with day-to-day activities such as bathing, preparing meals, shopping, managing finances, etc.?: No Are you currently unemployed and looking for a job?: No Are you interested in more education?: No Please select the resources that you would like help with: None Currently or been in a relationship where the following occur: no concerns reported THRIVE Score: 0 AUDIT C Alcohol Use Questionnaire (AUDIT-C) 1. How often do you have a drink containing alcohol?: Never Total Score: 0 DEON-7 AMB Questionnaire DEON-7 Date DEON - 7 assessed: 10/18/23 Feeling nervous, anxious, or on edge: 0 = Not at all Not being able to stop or control worryin = Not at all Worrying too much about different things: 0 = Not at all Trouble relaxin = Not at all Being so restless that it is hard to sit still: 0 = Not at all Becoming easily annoyed or irritable: 0 = Not at all Feeling afraid as if something awful might happen: 0 = Not at all Total DEON-7 score (0-4 normal; 5-9 mild; 10-14 moderate; 15-21 severe): 0 Source: Developed by Drs. Mauricio Varela, Barby Tadeo, Mike Conner and colleagues, with an educational phil from [employer]. Physical exam (Primary Care) Vital Signs: Last Vital Signs Pulse 56 10/18/23 08:10 BP 136/72 10/18/23 08:10 BMI result Body Mass Index 25.0 Tobacco/Smoking Status: Tobacco use Status Tobacco use date assessed 10/18/23 10/18/23 08:12 Patient Tobacco Use Status Never used Tobacco 10/18/23 08:12 e-Cigarette/Vaping Use Never Used 10/18/23 08:12 PHQ-9: PHQ-9 Score PHQ-9: Total score 0 10/18/23 08:40 Depression Screening Interpretation: Negative Thrive Assessment: Date of Thrive Assessment Date Thrive assessed 10/18/23 10/18/23 08:12 Currently or been in a relationship where the following occur: no concerns reported Results AMB Hemoglobin A1c AMB Hemoglobin A1c 7.4 % Last Edit by Yara Gaines on 10/18/23 08:32 Results Reviewed Results Reviewed: Laboratory Last Values Hgb A1c (Clinic) 7.4 % (4.0-6.0) H 10/18/23 08:26 Assessment and Plan Assessment & Plan Orders: Orders AMB Hemoglobin A1c Today Z13.9 - Encounter for screening, unspecified Coding
--- NOTE | 2023-10-18 09:09 | AM.OFFVISMDC ---
Intake Vital Signs 10/18/23 08:10 Height 5 ft 7 in Weight 159 lb 6 oz BMI 25.0 BP 136/72 Blood Pressure Location Lt brachial Position Sitting Pulse 56 Pulse Source Pulse Oximeter Intake Visit Reasons: AWV Intake Note: Patient is here for an Annual Wellness Visit. Flight Service Specialist Required: No Structural Steel Worker: Structural Steel Worker offered & declined Accompanied by: Self / Same As Patient Allergies lisinopril Adverse Reaction (Mild, Verified 10/19/23 16:34) Cough HPI AWV HPI Details 78-year-old male presents to the office requesting an annual wellness visit. [facility] Medical History Hypercholesterolemia Hyperuricemia Essential (primary) hypertension Diabetes mellitus Surgical History History of right nephrectomy Hx of CABG History of tonsillectomy Family History Father No problems noted. Mother No problems noted. Social History Housing: House Alcohol intake: never Patient Tobacco Use Status: Never used Tobacco e-Cigarette/Vaping Use: Never Used Second Hand Smoke Exposure: No Current occupational status: employed Cognitive needs: No Hearing needs: Yes Vision needs: Yes Questionnaire Medicare Wellness Checkup [age] What gender do you identify with?: male During the past 4 weeks, how much have you been bothered by emotional problems such as feeling anxious, depressed, irritable, sad or downhearted, and blue?: not at all During the past 4 weeks, has your physical & emotional health limited your social activities with family, friends, neighbors, or groups?: not at all During the past 4 weeks, how much bodily pain have you generally had?: very mild pain During the past 4 weeks, was someone available to help you if you needed & wanted help?: no, not at all During the past 4 weeks, what was the hardest physical activity you could do for at least 2 minutes?: heavy Can you get to places out of walking distance without help? (For eg., can you travel alone on buses, taxis or drive your car?): Yes Can you go shopping for groceries or clothes without someone's help?: Yes Can you prepare your own meals?: Yes Can you do your housework without help?: Yes Because of any health problems, do you need the help of another person with your personal care needs such as eating, bathing, dressing or getting around the house?: No Can you handle your own money without help?: Yes During the past 4 weeks, how would you rate your health in general?: very good During the past 4 weeks how have things been going for you?: very well; could hardly better Are you having difficulties driving your car?: no Do you always fasten your seat belt when you are in a car?: yes, usually During past 4 weeks, have you been bothered by the following: never: Falling or dizzy when standing up, Sexual problems?, Trouble eating well?, Teeth or denture problems?, Problems using the telephone? and Tiredness or fatigue? Have you fallen 2 or more times in the past year?: No Are you afraid of falling?: No Are you a smoker?: no During the past 4 weeks, how many drinks of wine, beer, or other alcoholic beverages did you have?: no alcohol at all Do you exercise for about 20 minutes 3 or more times a week?: yes, all the time Have you been given information to help with the following?: yes: Hazards in your house that might hurt you? and yes: Keeping track of your medications? How often do you have trouble taking medicines the way you have been told to take them?: I always take medicine as prescribed How confident are you that you can control & manage most of your health problems?: very confident What is your race?: Mini Mental State Exam (MMSE) Orientation What is the (year) (season) (date) (day) (month)?: year, season, date, day and month Score Score: 5 Activity of Daily Living Bathing - sponge bath, tub bath or shower: receives no assistance (gets in/out by self, if usual bathing means Dressing - getting clothes from closets & drawers, including inner/outer garments & fasteners.: gets clothes & gets completely dressed without help Toileting - going to the 'toilet room' for urine/bowel elimination & cleaning self/arranging clothes: goes to toilet room, cleans self, arranges clothes without help Transfer: moves in & out of bed and chair without help (may use support object) Continence: controls urination/bowel movements completely by self Feeding: feeds self without help Total Score: 0 Information obtained from: patient Using telephone: independent Traveling: independent Shopping: independent Preparing meals: independent Housework: independent Taking medicine: independent Managing money: independent PHQ-9 Over the last 2 weeks, how often have you been bothered by any of the following problems? 1. Little interest or pleasure in doing things: not at all 2. Feeling down, depressed, or hopeless: not at all 3. Trouble falling or staying asleep, or sleeping too much: not at all 4. Feeling tired or having little energy: not at all 5. Poor appetite or overeating: not at all 6. Feeling bad about yourself - or that you are a failure or have let yourself or your family down: not at all 7. Trouble concentrating on things, such as reading the newspaper or watching television: not at all 8. Moving or speaking so slowly that other people could have noticed. Or the opposite - being so fidgety or restless that you have been moving around a lot more than usual: not at all 9. Thoughts that you would be better off or of hurting yourself in some way: not at all Total score: 0 Depression Screening Interpretation: Negative Depression Screening Done: Yes Source: Developed by Drs. Mauricio Varela, Barby Tadeo, Mike Conner and colleagues, with an educational phil from [employer]. Thrive Questionnaire Date Thrive assessed: 10/18/23 DEON-7 AMB Questionnaire DEON-7 Date DEON - 7 assessed: 10/18/23 Source: Developed by Drs. Mauricio Varela, Barby Tadeo, Mike Conner and colleagues, with an educational phil from [employer]. AUDIT C Alcohol Use Questionnaire (AUDIT-C) 1. How often do you have a drink containing alcohol?: Never Total Score: 0 Physical Exam Vital Signs: Last Vital Signs Pulse 56 10/18/23 08:10 BP 136/72 10/18/23 08:10 BMI result Body Mass Index 25.0 Balance: Normal Romberg: Negative Tandem Walk: Able to Walk and Turn: Able to Rise from sit to stand: Able to Hearing Whisper test: With hearing aid pass Results AMB Hemoglobin A1c AMB Hemoglobin A1c 7.4 % Last Edit by Yara Gaines on 10/18/23 08:32 Results Reviewed Results Reviewed: Laboratory Last Values Hgb A1c (Clinic) 7.4 % (4.0-6.0) H 10/18/23 08:26 Assessment & Plan Assessment & Plan (1) Annual physical exam: Code(s): Z00.00 - Encounter for general adult medical examination without abnormal findings (2) Coronary artery disease: Comment: Status post quadruple bypass in 2001. Clinically stable. Code(s): I25.10 - Atherosclerotic heart disease of [place] coronary artery without angina pectoris Qualifiers: Coronary Disease-Associated Artery/Lesion type: [place] artery [place] vs. transplanted heart: [place] heart Associated angina: without angina Qualified Code(s): I25.10 - Atherosclerotic heart disease of [place] coronary artery without angina pectoris (3) Aortic stenosis: Comment: He has murmur by exam. Code(s): I35.0 - Nonrheumatic aortic (valve) stenosis Qualifiers: Cardiac valve disease etiology: nonrheumatic Qualified Code(s): I35.0 - Nonrheumatic aortic (valve) stenosis (4) Hypercholesterolemia: Code(s): E78.00 - Pure hypercholesterolemia, unspecified Plan: Blood work has been ordered. (5) Essential (primary) hypertension: Comment: Blood pressure control is good. Code(s): I10 - Essential (primary) hypertension (6) Diabetes mellitus: Code(s): E11.9 - Type 2 diabetes mellitus without complications Plan: Blood work has been ordered. Plan Will call with results. Orders: Orders AMB Hemoglobin A1c 10/18/23 Z13.9 - Encounter for screening, unspecified Quality Reporting (2019) Depression/Bipolar (159/160/161/177) PHQ-9: Total score: 0 Coding Level of Care Code Medicare First (G0438) Diagnoses Annual physical exam Z00.00 Coronary artery disease involving [place] coronary artery of [place] heart without angina pectoris I25.10 Coronary Disease-Associated Artery/Lesion type: [place] artery [place] vs. transplanted heart: [place] heart Associated angina: without angina Nonrheumatic aortic valve stenosis I35.0 Cardiac valve disease etiology: nonrheumatic Hypercholesterolemia E78.00 Essential (primary) hypertension I10 Diabetes mellitus E11.9
== END 2023-10-18 08:40 | disposition home or self-care (01) ==
PROVIDERS: PCP Internal Medicine; Visit Provider Internal Medicine
DX: Z00.00 Encounter for general adult medical examination without abnormal findings (principal); I25.10 Atherosclerotic heart disease of native coronary artery without angina pectoris; I35.0 Nonrheumatic aortic (valve) stenosis; E11.9 Type 2 diabetes mellitus without complications; E78.00 Pure hypercholesterolemia, unspecified; I10 Essential (primary) hypertension
CPT/HCPCS: 83036; 99397

== ENCOUNTER 2023-11-10 07:55 | Outpatient (REF) | payer OTHER, MEDICARE, SELFPAY ==
[2023-11-10 08:41] LABS: Hematocrit 43.1 % (42.0-52.0); Hemoglobin 14.4 g/dl (14.0-18.0); Mean Corpuscular HGB Conc 33.4 g/dl (31.0-36.0); Mean Corpuscular Hemoglobin 29.2 pg (27.0-33.0); Mean Corpuscular Volume 87.4 fL (80.0-98.0); Mean Platelet Volume 10.3 fL (9.4-12.4); Platelet Count 173 X10*3/uL (160-400); Red Blood Count 4.93 X10*6/uL (4.60-5.80); Red Cell Distribution Width 12.9 % (11.0-16.0); White Blood Count 6.9 X10*3/uL (4.8-10.8)
[2023-11-10 08:42] LABS: Appearance Urine Clear; Color Urine Yellow; Glucose Urine UA Negative (Negative); Leukocyte Esterase Urine Negative (Negative); Nitrite Urine Negative (Negative); Specific Gravity - Urine 1.015 (1.005-1.025); Urine Blood Negative (Negative); Urine Ketones Negative (Negative); Urine Protein Trace mg/dL (Neg-Trace)
[2023-11-10 08:49] LABS: Estimated Average Glucose 151 mg/dL; Hemoglobin A1c % 6.9 % (<6.0)
[2023-11-10 09:12] LABS: Creatinine Urine 84.66 mg/dL; Microalbum/Creatinine Ratio Ur 86.2 ug/mg cr (<30)
[2023-11-10 09:17] LABS: Alanine Aminotransferase 23 U/L (0-40); Albumin Level 4.5 g/dL (3.5-5.0); Alkaline Phosphatase 56 U/L (39-117); Anion Gap 13 (12-20); Aspartate Amino Transferase 21 U/L (5-37); Bilirubin Direct 0.2 mg/dL (0.0-0.5); Bilirubin Total 0.6 mg/dL (0.0-1.0); Blood Urea Nitrogen 24 mg/dL (9-16); Carbon Dioxide 26 mmol/L (22-29); Chloride 105 mmol/L (96-108); Cholesterol 122 mg/dL (<200); Estimated Glomerular Filt Rate 43; Glucose Random 163 mg/dL (60-115); HDL Cholesterol 37 mg/dL (>40); LDL Cholesterol Calculated 61 mg/dL (<100); Potassium 5.4 mmol/L (3.3-5.1); Sodium 139 mmol/L (135-145); Total Protein 7.6 g/dL (6.5-8.0); Triglycerides 122 mg/dL (<150); Uric Acid 5.8 mg/dL (3.4-7.0)
[2023-11-10 09:33] LABS: Thyroid Stimulating Hormone 1.87 uIU/mL (0.32-4.0); Vitamin D 25-OH Total 28.8 ng/mL (>30)
== END 2023-11-10 07:56 | disposition home or self-care (01) ==
LOC: HO.LAB 07:55
PROVIDERS: PCP Internal Medicine; Visit Provider Internal Medicine
DX: E11.9 Type 2 diabetes mellitus without complications (principal)
CPT/HCPCS: 36415; 80048; 80061; 80076; 81003; 82043; 82306; 82570; 83036; 84443; 84550; 85027

== ENCOUNTER 2023-11-17 10:34 | Outpatient (REF) | payer OTHER, MEDICARE, SELFPAY | END 2023-11-17 10:35 | disposition home or self-care (01) | LOC: HO.LAB 10:34 | PROVIDERS: PCP Internal Medicine; Visit Provider Internal Medicine | DX: Z13.89 Encounter for screening for other disorder (principal) ==

== ENCOUNTER 2023-11-19 08:39 | Outpatient (REF) | payer OTHER, MEDICARE, SELFPAY ==
[2023-11-19 10:16] LABS: Anion Gap 12 (12-20); Blood Urea Nitrogen 19 mg/dL (9-16); Calcium 9.1 mg/dL (8.4-10.2); Carbon Dioxide 23 mmol/L (22-29); Chloride 106 mmol/L (96-108); Estimated Glomerular Filt Rate 49; Glucose Random 140 mg/dL (60-115); Potassium 4.7 mmol/L (3.3-5.1); Sodium 136 mmol/L (135-145)
[2023-11-22 22:28] LABS: CK-BB 1 % (None Detected); CK-MB 1 % (<5); CK-MM 95 % (95-100); Creatine Kinase Isoenzyme Itrp MACRO CK TYPE 1; Creatine Kinase,Total,Serum 218 U/L (44-196)
== END 2023-11-19 08:40 | disposition home or self-care (01) ==
LOC: HO.LAB 08:39
PROVIDERS: PCP Internal Medicine; Visit Provider Internal Medicine
DX: E11.9 Type 2 diabetes mellitus without complications (principal)
CPT/HCPCS: 36415; 80048; 82552

== ENCOUNTER 2023-11-26 10:23 | Outpatient (REF) | payer SELFPAY ==
--- NOTE | 2023-11-26 16:07 | MHC.AU.HA1 ---
Hearing Aid Evaluation Date of Visit: 11/26/23 Historical Information: Description of Hearing: Mild to severe sensorineural hearing loss Au. Current personal amplification information, if applicable: Audeo B90 Right and Audeo Q70 Left Summary: Norman dropped off his right hearing aid for repair due to broken fiberglass finisher wire. Called with quote for new wire, $150. Dr. Austin would prefer to proceed with new amplification as previously discussed at his hearing evaluation in July. Reviewed options over the phone. Selected Ultra level, non-rechargeable. Quoted $4625. No consult fee, no service plan charge as Dr. 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 His broken aid is stored in the repair drawer. Hearing Aid Prescription: Based on the individual?s shared listening needs, communication environments, dexterity, desire for connectivity, and personal preferences, the following prescription for amplification has been made: Right ear: Make, Model, Color: Audeo L 90 312 , chestnut Battery Size: 312 Nanotechnology Engineering Technologist/Slim Tube: 2M Type of Earmold/Dome/CShell/SlimTip: small power, cerustop Left ear: Make, Model, Color: Audeo L 90 312 , chestnut Battery Size: 312 Nanotechnology Engineering Technologist/Slim Tube: 2M Type of Earmold/Dome/CShell/SlimTip: small power, cerustop Plan of Care: Patient wishes to purchase hearing aids as prescribed Action Taken/Action Needed: Medical Clearance to be requested from PCP/ENT Hearing Instrument Fitting to be scheduled when materials arrive Primary Diagnosis: H90.3 Bilateral Sensorineural Hearing Loss Signature: Provider: Tre Davidson, [facility]
== END 2023-11-26 10:24 | disposition home or self-care (01) ==
LOC: HO.HAP 10:23
PROVIDERS: Visit Provider Internal Medicine
DX: Z13.89 Encounter for screening for other disorder (principal)

== ENCOUNTER 2023-12-31 15:02 | Outpatient (REF) | payer SELFPAY ==
--- NOTE | 2023-12-31 16:15 | MHC.AU.HA2 ---
Hearing Instrument Fitting- Adult- Binaural Date of Visit: 12/31/23 Hearing Instruments Dispensed: Right Ear: Make, Model, Color, Serial Number: Belaeo L 90 312 , dejuan S#[id number] Bowling Alley Mechanic Repair Warranty: 01/04/2027 Bowling Alley Mechanic Loss and Damage Warranty: 01/04/2027 [facility] Service Plan: [employer] [facility] employee Battery Size: 312 Drum Maker/Slim Tube: 2M Earmold/Dome/CShell/SlimTip: small power Type of Wax Guard: cerustop Left Ear: Make, Model, Color, Serial Number: Belaeo L 90 312 , chestmaryann [id number] Bowling Alley Mechanic Repair Warranty: 01/04/2027 Bowling Alley Mechanic Loss and Damage Warranty: 01/04/2027 [facility] Service Plan: [facility] [place] employee Battery Size: 312 Drum Maker/Slim Tube: 2M Earmold/Dome/CShell/SlimTip: small power Type of Wax Guard: cerustop Accessories/Assistive Technology: Summary of Fitting: Fit with and oriented to binaural Phonak Audeo L 90 312 HAs. Verified to L adult 5 targets. Reduced to 90% gain. Reviewed maintenance, batteries, precautions. Previous hearing aid user. VC enabled, reviewed use. Counseled on adjustment to changes in amplification. Not connected with phone at this time. Briefly discussed remote mics and Bluetooth stethoscopes. Returned his old hearing aid that he had dropped off on 11/25 and decided not to repair. Recommendations: Recommendations: Hearing instrument care and maintenance were discussed and practiced. A hearing instrument follow-up was scheduled. Diagnosis Code(s): Primary Diagnosis: H90.3 Bilateral Sensorineural Hearing Loss Signature: Provider: Tre Davidson, [facility]
== END 2023-12-31 15:03 | disposition home or self-care (01) ==
LOC: HO.HAP 15:02
PROVIDERS: Visit Provider Internal Medicine
DX: Z46.1 Encounter for fitting and adjustment of hearing aid (principal); H90.3 Sensorineural hearing loss, bilateral
CPT/HCPCS: V5262

== ENCOUNTER 2024-01-21 13:53 | Outpatient (REF) | payer SELFPAY ==
--- NOTE | 2024-01-21 16:05 | MHC.AU.HA3 ---
Hearing Instrument Follow-Up- Binaural Date of Visit: 01/21/24 Right Ear: John, Model, Color, Serial Number: Abbie L 90 312 , dejuan S#[id number] Meeting Specialist Repair Warranty: 01/04/2027 Meeting Specialist Loss and Damage Warranty: 01/04/2027 [facility] Service Plan: [facility] employee Battery Size: 312 Medical Office Supervisor/Slim Tube: 2M Earmold/Dome/CShell/SlimTip:medium open smokey dome Type of Wax Guard: cerustop Dispensed By: [facility] Date of Fittin01/21/24 Left Ear: John, Model, Color, Serial Number: Abbie L 90 312 , chestmaryann [id number] Meeting Specialist Repair Warranty: 01/04/2027 Meeting Specialist Loss and Damage Warranty: 01/04/2027 [facility] Service Plan: [facility] [place] employee Battery Size: 312 Medical Office Supervisor/Slim Tube: 2M Earmold/Dome/CShell/SlimTip: small power Type of Wax Guard: cerustop Dispensed By: [facility] Date of Fittin01/21/24 Follow-Up Summary: Here for follow up. Dr. Austin reports that he was bothered by the power domes, switched to his old open domes and was much happier. Discussed the benefits of a closed vs. open fitting for his hearing loss. He reports that he is not experiencing feedback with the open domes and much prefers the sound quality. He will continue using the old smokey dome style. No adjustments made. Did not change acoustic parameters in Target in order to preserve low frequency gain. Recommendations: Recommendations: Hearing instrument maintenance in 6 months, or sooner if needed. Diagnosis Code(s): Primary Diagnosis: H90.3 Bilateral Sensorineural Hearing Loss Signature: Provider: Tre Davidson, [facility]
== END 2024-01-21 13:54 | disposition home or self-care (01) ==
LOC: HO.HAP 13:53
PROVIDERS: Visit Provider Internal Medicine
DX: Z13.89 Encounter for screening for other disorder (principal)

== ENCOUNTER 2024-05-17 08:40 | Outpatient (REF) | payer OTHER, MEDICARE, SELFPAY ==
[2024-05-17 09:39] LABS: Hematocrit 43.3 % (42.0-52.0); Hemoglobin 14.3 g/dl (14.0-18.0); Mean Corpuscular Hemoglobin 28.5 pg (27.0-33.0); Mean Corpuscular Volume 86.4 fL (80.0-98.0); Mean Platelet Volume 10.1 fL (9.4-12.4); Platelet Count 181 X10*3/uL (160-400); Red Blood Count 5.01 X10*6/uL (4.60-5.80); Red Cell Distribution Width 13.1 % (11.0-16.0); White Blood Count 6.7 X10*3/uL (4.8-10.8)
[2024-05-17 09:48] LABS: Estimated Average Glucose 166 mg/dL; Hemoglobin A1C 215.6488 umol/L; Hemoglobin A1c % 7.4 % (<6.0); Total Hemoglobin (HGBA1C) 3731.6421 umol/L
[2024-05-17 10:28] LABS: Albumin Level 4.4 g/dL (3.5-5.0); Alkaline Phosphatase 58 U/L (39-117); Anion Gap 10 (12-20); Aspartate Amino Transferase 31 U/L (5-37); Bilirubin Direct 0.1 mg/dL (0.0-0.5); Bilirubin Total 0.5 mg/dL (0.0-1.0); Blood Urea Nitrogen 24 mg/dL (9-16); Calcium 9.1 mg/dL (8.4-10.2); Carbon Dioxide 25 mmol/L (22-29); Chloride 107 mmol/L (96-108); Cholesterol 130 mg/dL (<200); Estimated Glomerular Filt Rate 45; Glucose Random 150 mg/dL (60-115); HDL Cholesterol 37 mg/dL (>40); LDL Cholesterol Calculated 69 mg/dL (<100); Potassium 4.9 mmol/L (3.3-5.1); Sodium 137 mmol/L (135-145); Total Protein 7.7 g/dL (6.5-8.0); Triglycerides 124 mg/dL (<150)
[2024-05-17 10:35] LABS: Thyroid Stimulating Hormone 1.76 uIU/mL (0.32-4.0)
[2024-05-17 10:41] LABS: Alanine Aminotransferase 31 U/L (0-40)
== END 2024-05-17 08:41 | disposition home or self-care (01) ==
LOC: HO.LAB 08:40
PROVIDERS: PCP Internal Medicine; Visit Provider Internal Medicine
DX: I10 Essential (primary) hypertension (principal); E11.9 Type 2 diabetes mellitus without complications
CPT/HCPCS: 36415; 80048; 80061; 80076; 82550; 83036; 84443; 85027

== ENCOUNTER 2024-10-08 11:23 | Outpatient (AMB) | payer OTHER, SELFPAY ==
--- NOTE | 2024-10-08 11:36 | A.OFFVIS_ITS ---
Vital Signs 10/08/24 11:38 Height 5 ft 7 in Weight 156 lb 15.506 oz BMI 24.6 BP 150/70 H Blood Pressure Location Lt brachial Position Sitting Pulse 49 L Pulse Source Monitor Intake Visit Reasons: 1 year follow-up Intake Note: 1 yr f/up Pile Driving Setter Required: No Accompanied by: Self / Same As Patient Allergies lisinopril Adverse Reaction (Mild, Verified 10/19/23 16:34) Cough Medication List - Last Reconciled 10/08/24 by Shahid Alvarenga MD allopurinol 150 mg PO DAILY amlodipine 5 mg PO DAILY amoxicillin-pot clavulanate 875-125 mg 1 tab PO BID azithromycin (Zithromax) 250 mg PO DAILY 12 days glipizide ER 5 mg PO BID levothyroxine (Levoxyl) 100 mcg PO DAILY losartan 100 mg PO DAILY metformin 1,000 mg PO BID rosuvastatin (Crestor) 20 mg PO DAILY HPI Comments Details: 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 He has background history of hypertension, hyperlipidemia, type 2 diabetes, hyperuricemia and coronary artery disease for which he underwent coronary artery bypass grafting in 2001. He said he presented to [facility] at that time with chest pressure and tightness. This initially happened with exertion but the day he presented he was sleeping and woke up with chest tightness. He was taken for cardiac catheterization by Dr. Aponte which showed severe left main stenosis and he underwent bypass surgery with QUIÑONES to LAD, left radial graft to OM saphenous vein graft to diagonal 1 and vein graft to the RCA. He is denying any chest discomfort on follow-up but he has some dyspnea with activity. He feels that this is related to just slowing down to some extent. His blood pressure control is good. His last lipid panel showed triglycerides 124, cholesterol 109, LDL 55, HDL 30. Taking medications regularly. He is taking aspirin 3 times a week. 10/10/2023: He returns for follow-up. No chest discomfort or shortness of of breath on follow-up. He has been active as before and has been walking 2 miles per day. Taking medications regularly. He is using aspirin up to 3 times a week. 10/08/2024: He is here for follow-up. Continues to do well and has no symptoms. Blood pressure is elevated. He has been compliant with medications and diet. [facility] Medical History Hypercholesterolemia Hyperuricemia Essential (primary) hypertension Diabetes mellitus Surgical History History of right nephrectomy Hx of CABG History of tonsillectomy Family History Father No problems noted. Mother No problems noted. Social History Housing: House Alcohol intake: never Patient Tobacco Use Status: Never used Tobacco e-Cigarette/Vaping Use: Never Used Second Hand Smoke Exposure: No Current occupational status: employed Cognitive needs: No Hearing needs: Yes Vision needs: Yes Review of Systems Const Denies chills, Denies fatigue, Denies fever(s), Denies frequent falls, Denies weakness, Denies weight gain and Denies weight loss ENT Denies dizziness Card Denies chest pain, Denies leg edema, Denies lightheadedness, Denies palpitations, Denies dyspnea and Denies dyspnea on exertion Resp Denies cough, Denies dyspnea and Denies dyspnea on exertion GI Denies hematochezia Musc Denies abnormal gait, Denies muscle weakness, Denies numbness, Denies radiating pain into limb and Denies tingling Neuro Denies abnormal gait, Denies dizziness, Denies frequent falls, Denies numbness, Denies tingling and Denies weakness Endo Denies fatigue and Denies palpitations Physical Exam Vital Signs: Last Vital Signs Pulse 49 L 10/08/24 11:38 BP 150/70 H 10/08/24 11:38 BMI result Body Mass Index 24.6 GENERAL APPEARANCE: in no acute distress, well developed, well nourished. NECK/THYROID: murmur radiating to the carotids, no jugular venous distention. SKIN: Midline sternotomy scar, left radial harvest scar.. HEART: Ejection systolic murmur in the aortic area with preserved 2nd heart sound., regular rate and rhythm. LUNGS: clear to auscultation bilaterally. ABDOMEN: normal, bowel sounds present, soft, nontender, nondistended. EXTREMITIES: no clubbing, cyanosis, or edema. PERIPHERAL PULSES: equal. NEUROLOGIC: nonfocal, alert and oriented. PSYCH: mood/affect full range. Office Procedures EKG Details: Sinus bradycardia 49 beats per minute, normal axis, normal ECG, QTC 377 milliseconds. [id number], Complete Assessment & Plan Assessment & Plan (1) Aortic stenosis: Comment: He has murmur by exam. Code(s): I35.0 - Nonrheumatic aortic (valve) stenosis Category: Medical Qualifiers: Cardiac valve disease etiology: nonrheumatic Qualified Code(s): I35.0 - Nonrheumatic aortic (valve) stenosis (2) Hypercholesterolemia: Code(s): E78.00 - Pure hypercholesterolemia, unspecified Category: Medical (3) Coronary artery disease: Comment: Status post quadruple bypass in 2001. Clinically stable. Code(s): I25.10 - Atherosclerotic heart disease of [place] coronary artery without angina pectoris Category: Medical Qualifiers: Coronary Disease-Associated Artery/Lesion type: [place] artery [place] vs. transplanted heart: [place] heart Associated angina: without angina Qualified Code(s): I25.10 - Atherosclerotic heart disease of [place] coronary artery without angina pectoris Plan 79-year-old gentleman who is here for follow-up. He has background history of coronary artery bypass surgery. Previously his LV function was preserved when he had mild aortic valve stenosis. Clinically he is fairly stable. He has no anginal symptoms. Blood pressure is elevated and he is going to monitor and keep a log of his blood pressures. If BP is elevated then we will discuss about adjusting medications. Lipid panel has been stable. Continue same medications for now. f/u in 1 year. Thank you for allowing me to participate in the care of your patient. Please feel free to contact me if you have any questions. Coding Level of Care Code Procedure Only Diagnoses Nonrheumatic aortic valve stenosis I35.0 Cardiac valve disease etiology: nonrheumatic Hypercholesterolemia E78.00 Coronary artery disease involving [place] coronary artery of [place] heart without angina pectoris I25.10 Coronary Disease-Associated Artery/Lesion type: [place] artery [place] vs. transplanted heart: [place] heart Associated angina: without angina CPT Codes EKG - CPT: [id number], Complete ([id number])
[2024-10-08 11:38] VITALS: BP 150/70; PULSE 49; BMI 24.6
== END 2024-10-08 12:04 | disposition home or self-care (01) ==
PROVIDERS: PCP Internal Medicine; Visit Provider Internal Medicine Cardiovascular Disease
DX: I35.0 Nonrheumatic aortic (valve) stenosis (principal); E78.00 Pure hypercholesterolemia, unspecified; I25.10 Atherosclerotic heart disease of native coronary artery without angina pectoris; R00.1 Bradycardia, unspecified
CPT/HCPCS: 93010; 99213

== ENCOUNTER → 2024-10-08 11:23 | Outpatient (BNVA) | payer OTHER, SELFPAY | PROVIDERS: PCP Internal Medicine; Visit Provider Internal Medicine Cardiovascular Disease | DX: I35.0 Nonrheumatic aortic (valve) stenosis (principal) | CPT/HCPCS: 93005 ==

== ENCOUNTER 2024-10-23 07:45 | Outpatient (AMB) | payer OTHER, SELFPAY ==
--- NOTE | 2024-10-23 07:51 | A.OFFPC_ITS ---
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: No Allergies lisinopril Adverse Reaction (Mild, Verified 10/23/24 07:57) Cough Medication List - Last Reconciled 10/23/24 by Bret Faust MD allopurinol 150 mg PO DAILY amlodipine 5 mg PO DAILY amoxicillin-pot clavulanate 875-125 mg 1 tab PO BID azithromycin (Zithromax) 250 mg PO DAILY 12 days glipizide ER 5 mg PO BID levothyroxine (Levoxyl) 100 mcg PO DAILY losartan 100 mg PO DAILY metformin 1,000 mg PO BID rosuvastatin (Crestor) 20 mg PO DAILY Tobacco use date assessed: 06/08/22 Dental Screening Dental Screen Date: 10/18/23 HPI AWV HPI Details 79-year-old male [facility]. [facility] Medical History Hypercholesterolemia Hyperuricemia Essential (primary) hypertension Diabetes mellitus Surgical History History of right nephrectomy Hx of CABG History of tonsillectomy Family History Father No problems noted. Mother No problems noted. Social History Housing: House Alcohol intake: never Patient Tobacco Use Status: Never used Tobacco e-Cigarette/Vaping Use: Never Used Second Hand Smoke Exposure: No Current occupational status: employed Cognitive needs: No Hearing needs: Yes Vision needs: Yes Questionnaire PHQ-9 Over the last 2 weeks, how often have you been bothered by any of the following problems? 1. Little interest or pleasure in doing things: not at all 2. Feeling down, depressed, or hopeless: not at all 3. Trouble falling or staying asleep, or sleeping too much: not at all 4. Feeling tired or having little energy: not at all 5. Poor appetite or overeating: not at all 6. Feeling bad about yourself - or that you are a failure or have let yourself or your family down: not at all 7. Trouble concentrating on things, such as reading the newspaper or watching television: not at all 8. Moving or speaking so slowly that other people could have noticed. Or the opposite - being so fidgety or restless that you have been moving around a lot more than usual: not at all 9. Thoughts that you would be better off or of hurting yourself in some way: not at all Total score: 0 Depression Screening Interpretation: Negative Depression Screening Done: Yes Source: Developed by Drs. Mauricio Varela, Barby Tadeo, Mike Conner and colleagues, with an educational phil from [employer]. Thrive Questionnaire Date Thrive assessed: 10/23/24 I am a: Patient What is your living situation today?: I have a steady place to live Within the past 12 months, did the food you bought not last and you didn't have the money to get more?: Never true Within the past 12 months, did you worry whether your food would run out before you got money to buy more?: Never true Do you have trouble paying for medicines?: No Do you have trouble getting transportation to medical appointments?: No Do you have trouble paying your heating and electricity bill?: No Do you have trouble taking care of your child, family member or friend?: No Do you have trouble with day-to-day activities such as bathing, preparing meals, shopping, managing finances, etc.?: No Are you currently unemployed and looking for a job?: No Are you interested in more education?: No Please select the resources that you would like help with: None Currently or been in a relationship where the following occur: No concerns reported THRIVE Score: 0 AUDIT C Alcohol Use Questionnaire (AUDIT-C) 1. How often do you have a drink containing alcohol?: Never Total Score: 0 DEON-7 AMB Questionnaire DEON-7 Date DEON - 7 assessed: 10/23/24 Feeling nervous, anxious, or on edge: 0 = Not at all Not being able to stop or control worryin = Not at all Worrying too much about different things: 0 = Not at all Trouble relaxin = Not at all Being so restless that it is hard to sit still: 0 = Not at all Becoming easily annoyed or irritable: 0 = Not at all Feeling afraid as if something awful might happen: 0 = Not at all Total DEON-7 score (0-4 normal; 5-9 mild; 10-14 moderate; 15-21 severe): 0 Source: Developed by Drs. Mauricio Varela, Barby Tadeo, Mike Conner and colleagues, with an educational phil from [employer]. Physical exam (Primary Care) Tobacco/Smoking Status: Tobacco use Status Tobacco use date assessed 06/08/22 10/23/24 07:53 Patient Tobacco Use Status Never used Tobacco 10/23/24 07:53 e-Cigarette/Vaping Use Never Used 10/23/24 07:53 PHQ-9: PHQ-9 Score PHQ-9: Total score 0 10/23/24 07:54 Depression Screening Interpretation: Negative Thrive Assessment: Date of Thrive Assessment Date Thrive assessed 10/23/24 10/23/24 07:54 Currently or been in a relationship where the following occur: No concerns reported Advance Care Planning discussion: Exists, not on file Date of discussion: 10/23/24 Who was present: Patient Forms completed: Health Care Proxy and [facility] Time spent: 1-15 minutes, not on file Actual minutes spent: 5 Const Other: Patient able to get up from a sitting position without assistance. Able to tandem walk. No abnormalities in the gait. Uses a hearing aid. Mini-mental exam was within normal limits. Patient needs no assistance in his activities of daily living. Telehealth Telehealth Telehealth Platform: [facility] Location of provider rendering services: practice address Location of patient: address on file Patient Identification confirmed using: Name, : Yes Telehealth method: voice only Patient verbally consented to treatment: Yes Patient verbally consented to billing insurance company: Yes Patient informed of any privacy concerns related to visit: Yes Minutes spent on Phone/Video with Pt.: 15 Coding Level of Care Code Est Pt Prev Care >65y(02093) Diagnoses Annual physical exam Z00.00 Additional Codes Vital Signs *Quality* - Advance Care Planning discussion: Exists, not on file ([id number]) Vital Signs *Quality* - Time spent: 1-15 minutes, not on file ([id number]) Assessment & Plan Assessment & Plan (1) Annual physical exam: Code(s): Z00.00 - Encounter for general adult medical examination without abnormal findings Category: Medical Plan: [place] of care completed. Personalized screening discussed with patient.
== END 2024-10-23 09:52 | disposition home or self-care (01) ==
LOC: HO.HMCH 07:45
PROVIDERS: PCP Internal Medicine; Visit Provider Internal Medicine
DX: Z00.00 Encounter for general adult medical examination without abnormal findings (principal)

== ENCOUNTER → 2024-10-23 07:45 | Outpatient (BNVA) | payer OTHER, SELFPAY | PROVIDERS: PCP Internal Medicine; Visit Provider Internal Medicine | DX: Z13.89 Encounter for screening for other disorder (principal) ==

== ENCOUNTER 2024-11-01 08:27 | Outpatient (REF) | payer OTHER, MEDICARE, SELFPAY ==
[2024-11-01 09:13] LABS: Hematocrit 41.3 % (42.0-52.0); Hemoglobin 13.7 g/dl (14.0-18.0); Mean Corpuscular HGB Conc 33.2 g/dl (31.0-36.0); Mean Corpuscular Hemoglobin 28.2 pg (27.0-33.0); Mean Corpuscular Volume 85.2 fL (80.0-98.0); Mean Platelet Volume 10.1 fL (9.4-12.4); Platelet Count 151 X10*3/uL (160-400); Red Blood Count 4.85 X10*6/uL (4.60-5.80); Red Cell Distribution Width 13.5 % (11.0-16.0)
[2024-11-01 09:28] LABS: Estimated Average Glucose 174 mg/dL; Hemoglobin A1c % 7.7 % (<6.0); Total Hemoglobin (HGBA1C) 3526.2761 umol/L
[2024-11-01 09:53] LABS: Appearance Urine Clear; Color Urine Yellow; Glucose Urine UA Negative (Negative); Leukocyte Esterase Urine Negative (Negative); Nitrite Urine Negative (Negative); Specific Gravity - Urine 1.015 (1.005-1.025); UMIC TRIGGER UA YES; Urine Blood Negative (Negative); Urine Ketones Negative (Negative); Urine Protein 30 (1+) mg/dL (Neg-Trace)
[2024-11-01 09:54] LABS: Alanine Aminotransferase 43 U/L (0-40); Albumin Level 4.5 g/dL (3.5-5.0); Alkaline Phosphatase 60 U/L (39-117); Anion Gap 14 (12-20); Aspartate Amino Transferase 38 U/L (5-37); Bilirubin Direct 0.2 mg/dL (0.0-0.5); Bilirubin Total 0.4 mg/dL (0.0-1.0); Blood Urea Nitrogen 19 mg/dL (9-16); Calcium 9.7 mg/dL (8.4-10.2); Carbon Dioxide 25 mmol/L (22-29); Chloride 106 mmol/L (96-108); Cholesterol 125 mg/dL (<200); Estimated Glomerular Filt Rate 53; Glucose Random 165 mg/dL (60-115); HDL Cholesterol 40 mg/dL (>40); LDL Cholesterol Calculated 64 mg/dL (<100); Potassium 4.9 mmol/L (3.3-5.1); Sodium 140 mmol/L (135-145); Total Protein 7.2 g/dL (6.5-8.0); Triglycerides 108 mg/dL (<150); Uric Acid 5.4 mg/dL (3.4-7.0)
[2024-11-01 09:56] LABS: Bacteria Urine None Seen (None Seen); Hyaline Casts Urine 0-2 /LPF (0-2); RBC Urine 0-2 /HPF (0-2); Squamous Epithelial Cell Urine 0-2 /HPF (0-2); WBC Urine 0-5 /HPF (0-5)
[2024-11-01 10:10] LABS: Thyroid Stimulating Hormone 2.42 uIU/mL (0.32-4.0)
[2024-11-01 10:55] LABS: Creatinine Urine 111.53 mg/dL; Microalbum/Creatinine Ratio Ur 130.9 ug/mg cr (<30)
== END 2024-11-01 08:28 | disposition home or self-care (01) ==
LOC: HO.LAB 08:27
PROVIDERS: PCP Internal Medicine; Visit Provider Internal Medicine
DX: I10 Essential (primary) hypertension (principal); E11.9 Type 2 diabetes mellitus without complications; E79.0 Hyperuricemia without signs of inflammatory arthritis and tophaceous disease
CPT/HCPCS: 36415; 80048; 80061; 80076; 81001; 82043; 82570; 83036; 84443; 84550; 85027